=== PATIENT | male | born 1955 | race Caucasian/White ===

== ENCOUNTER 2018-08-21 07:13 | Day surgery (SDC) | payer BC ==
--- NOTE | 2018-08-20 14:41 | HP ---
DATE OF SURGERY: 08/21/2018 ADMISSION DIAGNOSES: 1) The patient has had ulcerative esophagitis. 2) The patient has had colon polyps. ANTICIPATED PROCEDURES: 1) EGD. 2) Colonoscopy. HISTORY OF PRESENT ILLNESS: The patient has had esophagitis and colon polyps. Last endoscopic examination was about five years ago. He still suffers from symptoms of reflux and is on medications for such. He is five years out from his last colon polypectomy. He presents for EGD and colonoscopy. PAST MEDICAL HISTORY: ALLERGIES: NONE. MEDICATIONS: Nexium, Pepcid. PAST SURGICAL HISTORY: EGD, colonoscopy. SOCIAL HISTORY: Negative. FAMILY HISTORY: Negative. REVIEW OF SYSTEMS: CVS: Negative. Pulmonary: Negative. GI: Per history of present illness. : Negative. PHYSICAL EXAMINATION: VITAL SIGNS: Normal. CHEST: Clear. COR: Regular. ABDOMEN: No palpable organomegaly or mass. IMPRESSION: Esophagitis, colon polyps. PLAN: EGD and colonoscopy.
[~2018-08-21 07:13] MED LIST: Lactated Ringers 1,000 ML IV SCH
[2018-08-21] MEDS ORDERED: DIPRIVAN 200 MG/20 ML IV ONE (07:14)
[2018-08-21] MEDS ORDERED: Lactated Ringers 1,000 ML IV ONE (09:57)
[2018-08-21 11:05] VITALS: O2SAT 97
[2018-08-21 11:06] VITALS: BP 124/76; PULSE 51
--- NOTE | 2018-08-21 11:11 | OP ---
SURGERY DATE/TIME: 08/21/2018 4777 PREOPERATIVE DIAGNOSES: 1) Epigastric pain, reflux symptoms. History of hiatal hernia. History of antacid ingestion. No recent exam. 2) History of polyps. Last exam nine to ten years ago. POSTOPERATIVE DIAGNOSES: 1) Epigastric pain, reflux symptoms. History of hiatal hernia. History of antacid ingestion. No recent exam. 2) History of polyps. Last exam nine to ten years ago. 3) Additional finding 3 inch hiatal hernia. 4) Grade II to III reflux disease although fairly quiet at this time considering. I think it has been flared up in the past and he does require Nexium. 5) Moderate diverticulosis of the sigmoid. PROCEDURES: 1) Colonoscopy complete to cecum. Hot polypectomy rectal polyp. Hot polypectomy two cecal polyps. Hot snare polypectomy mid sigmoid polyp with blue tattoo dye. 2) EGD with complex hot polypectomy x20 gastric polyps. SURGEON: Vijay Perez M.D. ANESTHESIA: MAC. COMPLICATIONS: None. CONDITION: Stable. INDICATION: Based on his above stated indications taken to surgery. DESCRIPTION OF PROCEDURE: MAC sedation provided. Pharyngoesophageal junction was cannulated. Esophagus normal down to 38 cm. A 3 inch hiatal hernia. There was a light rim of esophagitis. I think it has been worse but he has been on Nexium. There was no suggestion of any Jimenez's. The fundus body is covered with polyps. Antrum it does get road cleaner. Pylorus satisfactory. Duodenal bulb satisfactory. Second portion satisfactory. The scope was looped on itself. A 3 inch hiatal hernia. About 20 of the polyps were taken. They were taken both with biopsy forceps and they were submitted in one container. Anal digital examination satisfactory. Scope advanced to the cecum. Base of cecum, ileocecal valve and appendiceal orifice was normal. Two polyps in the cecum, 3 mm and 2 mm, were taken with hot biopsy forceps. The transverse was normal. Descending normal. Mid sigmoid a 1 cm polyp a education courses sales representative biopsy submitted in the jar and then the whole polyp was taken about 1 cm with hot snare. It was totally retrieved and placed in the same jar as did sigmoid polyp 20 cm. Tattoo dye was placed on the site of this. Rectum 1 small polyp 2 mm taken submitted in a separate jar. The patient tolerated the procedure satisfactorily. Findings discussed with the in the waiting room.
== END 2018-08-21 11:20 | disposition home or self-care (01) ==
LOC: SDC 07:13
PROVIDERS: ATTEND Surgery
DX: K21.0 Gastro-esophageal reflux disease with esophagitis (principal); K44.9 Diaphragmatic hernia without obstruction or gangrene; K62.1 Rectal polyp; K57.30 Diverticulosis of large intestine without perforation or abscess without bleeding; K31.7 Polyp of stomach and duodenum; D12.0 Benign neoplasm of cecum; D12.5 Benign neoplasm of sigmoid colon; R10.13 Epigastric pain; Z86.010 Personal history of colon polyps
CPT/HCPCS: 88305; J2704

== ENCOUNTER 2021-09-21 06:23 | Day surgery (SDC) | payer BC, MEDICARE ==
--- NOTE | 2021-09-15 10:54 | HP ---
DATE OF SURGERY: 09/21/2021 HISTORY OF PRESENT ILLNESS: The patient presents for three year follow up of colon polyps. The patient denies any symptoms at this time. No complaints per the patient. PAST MEDICAL HISTORY: Melanoma in situ. PAST SURGICAL HISTORY: Excision of melanoma in situ. ALLERGIES: NKDA. MEDICATIONS: Per chart. FAMILY HISTORY: None reported. SOCIAL HISTORY: None reported. REVIEW OF SYSTEMS: CONSTITUTIONAL: Denies fever or chills. CHEST: Denies shortness of breath. CVS: Denies chest pain. ABDOMEN: Denies abdominal pain, nausea, vomiting, diarrhea, constipation or rectal bleeding. PHYSICAL EXAMINATION: GENERAL: No acute distress. CHEST: Nonlabored. No shortness of breath. CVS: Regular rate and rhythm. ABDOMEN: Soft, nontender. IMPRESSION: History of colon polyps. PLAN: Colonoscopy with Dr. Vijay Perez. As dictated by Lilian Persaud NP.
[~2021-09-21 06:23] MED LIST changes: +Lactated Ringers 1,000 ML IV ONE
[2021-09-21 08:38] VITALS: BP 140/71; PULSE 55; O2SAT 99
--- NOTE | 2021-09-21 10:53 | OP ---
SURGERY DATE/TIME: 09/21/2021 0738 PREOPERATIVE DIAGNOSIS: Five year follow up colon polyps. POSTOPERATIVE DIAGNOSES: 1) One polyp 8 mm hot polypectomy x1 mid transverse colon polyp. 2) Moderate to severe sigmoid diverticulosis. 3) Moderate internal hemorrhoids. PROCEDURES: 1) Colonoscopy complete to cecum. 2) Hot polypectomy x1. SURGEON: Vijay Perez M.D. ANESTHESIA: MAC. COMPLICATIONS: None. CONDITION: Stable. INDICATION: A patient requiring evaluation. He has a history of polyps. DESCRIPTION OF PROCEDURE: Taken to endoscopy. Left lateral decubitus position. Anal digital examination satisfactory. Rectum satisfactory. Prostate satisfactory. Scope advanced to the cecum. Base of the cecum, ileocecal valve, appendiceal area was normal. Circumferential withdrawal ascending, hepatic, transverse 8 mm polyp taken with hot biopsy forceps to extinction. Splenic, descending, sigmoid, rectum, anus there was moderate to severe sigmoid diverticulosis but there were no complications in this. There were moderate internal hemorrhoids. The prep was excellent and in general colon mucosa looked good. The previous polypectomy site in the rectum was visible and the scar was normal. Pictures were given to the . The patient tolerated the procedure well.
== END 2021-09-21 08:44 | disposition home or self-care (01) ==
LOC: SDC 06:23
PROVIDERS: ATTEND Surgery
DX: Z09 Encounter for follow-up examination after completed treatment for conditions other than malignant neoplasm (principal); Z86.010 Personal history of colon polyps; K63.5 Polyp of colon; K57.30 Diverticulosis of large intestine without perforation or abscess without bleeding; K64.8 Other hemorrhoids